=== PATIENT | female | born 1995 | race Caucasian/White ===

== ENCOUNTER 2019-10-04 08:00 | Outpatient (RCR) | payer BC, SELFPAY ==
--- NOTE | 2019-07-07 11:00 | PTOPEVAL ---
Thank you for referring this patient to [facility]. Please review, sign, date and return this plan of care ROMEO. Pt seen for initial PT evaluation following TOS decompression surgery due to blood clot. She requires additional skilled therapy 2x/ wk x 6 wk to address impairments of UE and scapular weakness, decreased range, increased pain, soft tissue restrictions and progression of HEP to allow pt to return to normal activities. I agree with and certify that the following plan of care is medically necessary. Referring Physician Date Attending Provider: PHYSICIAN NOT ON STAFF Referring Provider: Dr. Blaze Lancaster MD *PT Outpatient Evaluation Start: 07/07/19 08:10 Freq: Status: Active Protocol: Document 07/07/19 08:09 [facility] (Rec: 07/07/19 08:40 [facility] [email or web address]) Therapy Assessment Status Assessment Status Assessment Status Evaluation Outpatient Past Medical History Past Medical History Past Medical History Status Patient Denies Significant Past Medical History Evaluation Information Problem Diagnosis TOS decompression surgery Onset 03/02/19 Cause DVT Subjective Information She went to Urgent Care and ED Query Text:As Reported By Patient/ on 03/02/19 due to DVT in Family left upper arm. She went to [facility] for removal of clot. She was seen then by Dr. Lancaster for s/p rib resection and scalenectomy. She has been attending therapy at [facility] therapy clinic 1x/wk since 04/23/19. She is performing a HEP for shoulder strengthening. She was performing 40-50 reps 2x/ day. She is performing upper trap stretching with cervical rotation stretching. She was issued a posture brace at her previous PT, but it inflames her pain and symptoms. She does feel like she has a knot in her neck that she is performing a massage daily to address. Reports tenderness and tightness of the neck muscles. States the ant chest region is numb. She c/o acheness of left arm with increased fatigue and weakness . Denies numbness and tingling .
--- NOTE | 2019-07-31 12:24 | PCPTNOTE ---
Patient called & cancelled her next 2 scheduled appointment this date due to COVID-19.
--- NOTE | 2019-08-14 09:09 | PCPTNOTE ---
Called pt to confirm attending visit on 08/16/19. She requested visit to be changed to Wednesday08/18/19.
--- NOTE | 2019-08-28 10:39 | PTOPEVAL ---
Thank you for referring Norberto Jerome to [facility]. Please review, sign, date and return this plan of care ROMEO. Pt has been seen for 7 PT visits due to impairments of left shoulder related to s/p VTOS surgery. She demonstrates normal shoulder range except for rotation. She continues to demonstrates significant shoulder and scapular weakness with poor UE movement pattern with reaching motion and poor body awareness for posture. Recommend additional PT 2x/wk x 4 wk to achieve max benefit and finalize a HEP. I agree with and certify that the following plan of care is medically necessary. Referring Physician Date Attending Provider: PHYSICIAN NOT ON STAFF Referring Provider: Dr. Blaze Lancaster MD *PT Outpatient Evaluation Start: 07/07/19 08:10 Freq: Status: Active Protocol: Document 08/28/19 08:27 [facility] (Rec: 08/28/19 09:02 [facility] [email or web address]) Therapy Assessment Status Assessment Status Assessment Status Re-evaluation Evaluation Information Problem Diagnosis TOS decompression surgery Onset 03/02/19 Cause DVT Additional Evaluation Detail She went to Urgent Care and ED on 03/02/19 due to DVT in left upper arm. She went to [facility] for removal of clot. She was seen then by Dr. Lancaster for s/p rib resection and scalenectomy. She has been attending therapy at [facility] therapy clinic 1x/wk since 04/23/19. She was issued a posture brace at her previous PT, but it inflames her pain and symptoms . Subjective Information She reports her neck remains Query Text:As Reported By Patient/ very painful and tight. She Family does not feel like the tightness and pain in her lateral/ant neck has improved with therapy, but her upper back/posterior neck tightness and pain is better. She does feel like the exercises are helping her scapula and shoulder, but not the neck region. She does not feel like the muscle knot has improved with therapy. She feels the muscle get tighter as the day progresses. She has to be able to sit for 1 1/2- 2
--- NOTE | 2019-10-04 09:19 | PCPTNOTE ---
This treatment is being continued on visit number [id number]. Please see documentation on both accounts to view progress. Completed interventions, outcomes, and problems have been marked as Inactive to facilitate the copying of the Care plan routine for recurring accounts.
== END 2019-10-04 09:01 | disposition home or self-care (01) ==
LOC: ANHPT 08:00
DX: G54.0 Brachial plexus disorders (principal)
CPT/HCPCS: 97014; 97110; 97112; 97140; 97162; G0283

== ENCOUNTER 2019-10-16 08:00 | Outpatient (RCR) | payer BC, SELFPAY ==
--- NOTE | 2019-10-04 09:17 | PCPTNOTE ---
The treatment documented on this account is a continuation of the treatment documented on visit number [id number]. Please see documentation on both accounts to view progress. The Plan of Care has been transitioned and updated within the new V#. I have addressed and agree with the discipline specific Problems, Interventions, and Goals for the current certification period. Completed interventions, outcomes, and problems have been marked as Inactive to facilitate the copying of the Care plan routine for recurring accounts.
--- NOTE | 2019-10-16 09:29 | PTOPEVAL ---
Thank you for referring Norberto Jerome to [facility]. Please review, sign, date and return this plan of care ROMEOMandy Thornton has been seen for 12 therapy visits since 07/07/19 to address impairments related to TOS decompression surgery. She has reached maximal potential with skilled PT services. She is indep with her HEP at this time. DC skilled PT services with patient to cont with HEP and fitness program. I agree with and certify that the following plan of care is medically necessary. Referring Physician Date Referring Provider: Dr. Blaze Lancaster Physical Therapy Re-assessment and Discharge *PT Outpatient Evaluation Start: 10/04/19 09:10 Freq: Status: Active Protocol: Document 10/16/19 08:05 [facility] (Rec: 10/16/19 08:36 [email or web address]) Therapy Assessment Status Assessment Status Assessment Status Discharge Evaluation Information Problem Diagnosis TOS decompression surgery Onset 03/02/19 Cause DVT Additional Evaluation Detail She went to Urgent Care and ED on 03/02/19 due to DVT in left upper arm. She went to [facility] for removal of clot. She was seen then by Dr. Lancaster for s/p rib resection and scalenectomy. She has been attending therapy at [facility] therapy clinic 1x/wk since 04/23/19. She was issued a posture brace at her previous PT, but it inflames her pain and symptoms . Subjective Information She reports her neck remains Query Text:As Reported By Patient/ painful and tight. She does Family report the tightness and pain in her lateral/ant neck has improved with therapy, but she cont to feel tightness in the neck region. She does feel like the her shoulder and scapular region is better and stronger. She does not feel like the muscle knot/tightness of her neck has improved much. Denies any radiating numbness and tingling of left UE. She works in seated position for 2 hours, then a 15 min break. She reports the pain with increase at times.
== END 2019-10-16 13:51 | disposition home or self-care (01) ==
LOC: ANHPT 08:00
DX: G54.0 Brachial plexus disorders (principal)
CPT/HCPCS: 97110; 97530